=== PATIENT | female | born 1990 | race African-American/Black ===

== ENCOUNTER 2018-03-07 11:52 | Emergency (ER) | payer OTHER ==
[2018-03-07] MEDS: DIPHENHYDRAMINE 50 MG INJ IV (12:42)
[2018-03-07] MEDS: SOD CHLORIDE 0.9% 1,000 ML IV (12:42)
[2018-03-07] MEDS: METOCLOPRAMIDE 10 MG INJ IV (12:42)
[2018-03-07] MEDS: KETOROLAC 30 MG INJ IV (13:49)
== END 2018-03-07 14:13 | disposition home or self-care (01) ==
LOC: FTE 11:52
DX: H10.021 Other mucopurulent conjunctivitis, right eye (principal); R51 Headache
CPT/HCPCS: 81025; 96361; 96374; 96375; 99284-25

== ENCOUNTER 2018-06-30 09:07 | Emergency (ER) | payer OTHER | END 2018-06-30 10:40 | disposition home or self-care (01) | LOC: FTE 09:07 | DX: M79.672 Pain in left foot (principal); M79.671 Pain in right foot | CPT/HCPCS: 73630; 73630-50; 99284-25 ==

== ENCOUNTER 2018-10-12 10:05 | Emergency (ER) | payer OTHER ==
[2018-10-12 11:59] LABS: URINE BLOOD (Dip) POC Negative (NEGATIVE); URINE GLUCOSE (Dip) POC Negative (NEGATIVE); URINE KETONES (Dip) POC Negative (NEGATIVE); URINE LEUKOCYTE EST (Dip) POC 2+ (NEGATIVE); URINE NITRITE (Dip) POC Negative (NEGATIVE); URINE TOTAL PROTEIN POC Negative (NEGATIVE)
[2018-10-12 11:59] LABS: URINE PH (Dip) POC 6.5 (5.0-8.5)
[2018-10-12] MEDS: METOCLOPRAMIDE 10 MG INJ IV (12:07)
[2018-10-12] MEDS: KETOROLAC 30 MG INJ IV (12:07)
[2018-10-12] MEDS: SOD CHLORIDE 0.9% 500 ML IV (12:08)
[2018-10-12] MEDS: ACETAMINOPHEN 325 MG TAB PO (12:08)
== END 2018-10-12 13:27 | disposition home or self-care (01) ==
LOC: FTE 10:05
DX: G43.909 Migraine, unspecified, not intractable, without status migrainosus (principal)
CPT/HCPCS: 81003; 81025; 82962; 96361; 96374; 96375; 99284-25